=== PATIENT | male | born 1950 ===

== ENCOUNTER 2017-10-30 10:11 | Emergency (ER) | payer OTHER ==
[2017-10-30 10:32] VITALS: BMI 32.3
[2017-10-30 10:34] VITALS: PULSE 69; RESP 16; TEMP 98; O2SAT 100
--- NOTE | 2017-10-30 11:14 | ED PDOC ---
Arrival/HPI - General Chief Complaint: Pain, Chronic Time Seen by Provider: 10/30/17 10:24 - History of Present Illness Associated Symptoms (Text): 67 yo male, no PMH, presents to ED for evaluation of generalized joint pain, predominately to shoulder, elbows and knees x 3 months now. Pt also reports intermittent episodes of swelling. Reports taking Tylenol and Motrin for symptoms and states he does a lot of heavy lifting. No redness noted. Past Medical History - Provider Review Nursing Documentation Reviewed: Yes - Travel History Have you recently traveled outside [place] w/in the past 3 mons?: No - Past History Past History: Non-Contributing - Infectious Disease Hx of Infectious Diseases: None - Psychiatric Hx Substance Use: No Family/Social History - Physician Review Nursing Documentation Reviewed: Yes Family/Social History: No Known Family HX Smoking Status: Never Smoked Hx Alcohol Use: No Hx Substance Use: No Allergies/Home Meds Allergies/Adverse Reactions: Allergies No Known Allergies Allergy (Verified 10/30/17 10:52) Review of Systems - Patients Enrolled in [employer] [X]: A conversation was conducted with the primary medical doctor. - Physician Review All systems were reviewed & negative as marked: Yes - Review of Systems Musculoskeletal: Arthralgias Physical Exam Vital Signs Temp Pulse Resp BP Pulse Ox 10/30/17 13:57 151/87 H 10/30/17 10:33 98.0 F 69 16 165/98 H 100 Temperature: Afebrile Blood Pressure: Normal Pulse: Regular Respiratory Rate: Normal Appearance: Positive for: Well-Appearing, Non-Toxic, Comfortable Pain Distress: None Mental Status: Positive for: Alert and Oriented X 3 - Systems Exam Head: Present: Atraumatic, Normocephalic Pupils: Present: PERRL Extroacular Muscles: Present: EOMI Conjunctiva: Present: Normal Mouth: Present: Moist Mucous Membranes Neck: Present: Normal Range of Motion Respiratory/Chest: Present: Clear to Auscultation, Good Air Exchange. No: Respiratory Distress, Accessory Muscle Use Cardiovascular: Present: Regular Rate and Rhythm, Normal S1, S2. No: Murmurs Abdomen: Present: Normal Bowel Sounds. No: Tenderness, Distention, Peritoneal Signs Back: Present: Normal Inspection Upper Extremity: Present: Normal Inspection. No: Cyanosis, Edema Lower Extremity: Present: Normal Inspection. No: Edema Neurological: Present: GCS=15, CN II-XII Intact, Speech Normal Skin: Present: Warm, Dry, Normal Color. No: Rashes Psychiatric: Present: Alert, Oriented x 3, Normal Insight, Normal Concentration Medical Decision Making ED Course and Treatment: 10/30/17 15:05 XRs obtained of affected joints. All NAD, (+) DJD, as read by VERENICE Labs resulted and reviewed with Pt who demonstrated full understanding - Lab Interpretations Lab Results: 10/30/17 11:56 10/30/17 11:56 Lab Results 10/30/17 11:56: Sodium 142, Potassium 3.9, Chloride 106, Carbon Dioxide 26, Anion Gap 14, BUN 15, Creatinine 0.9, Est GFR ( Amer) > 60, Est GFR (Non- Af Amer) > 60, Random Glucose 103, Calcium 10.1, Total Bilirubin 0.6, AST 32, ALT 49, Alkaline Phosphatase 61, Total Protein 7.7, Albumin 4.4, Globulin 3.2, Albumin/Globulin Ratio 1.4 10/30/17 11:56: WBC 10.3, RBC 4.79, Hgb 14.9, Hct 45.6, MCV 95.3 H, MCH 31.2 H, MCHC 32.7 L, RDW 13.2, Plt Count 200, MPV 8.5, Neut % (Auto) 55.4, Lymph % (Auto ) 29.6, [place] % (Auto) 9.6, Eos % (Auto) 4.8 H, Baso % (Auto) 0.6, Neut # 5.7, Lymph # 3.1, [place] # 1.0 H, Eos # 0.5, Baso # 0.1, ESR 11 - RAD Interpretation Radiology Orders: 10/30/17 11:12 ELBOW TWO VIEWS BI [RAD] Stat KNEES BILATERAL [RAD] Stat SHOULDER LEFT [RAD] Stat SHOULDER RIGHT [RAD] Stat Disposition/Present on Arrival - Present on Arrival Any Indicators Present on Arrival: No - Disposition Have Diagnosis and Disposition been Completed?: Yes Diagnosis: Degenerative arthritis Disposition Time: 15:17 Condition: STABLE Discharge Instructions (ExitCare): Osteoarthritis (ED) Prescriptions: Naproxen 500 mg PO Q12 #20 tab Forms: [employer] (Emir[place])
[2017-10-30 12:18] LABS: BASO # 0.1 K/uL (0.0-0.2); BASO % 0.6 % (0.0-2.0); EOS # 0.5 K/uL (0.0-0.7); EOS % 4.8 % (0.0-4.0); HEMOGLOBIN 14.9 g/dL (12.0-18.0); LYMPH # 3.1 K/uL (1.0-4.3); LYMPH % 29.6 % (20.0-40.0); MEAN CELL VOLUME 95.3 fl (80.0-94.0); MEAN CORPUSCULAR HEMOGLOBIN 31.2 pg (27.0-31.0); MEAN CORPUSCULAR HGB CONC 32.7 g/dL (33.0-37.0); MEAN PLATELET VOLUME 8.5 fl (7.2-11.7); MONO % 9.6 % (0.0-10.0); NEUT # 5.7 K/uL (1.8-7.0); NEUT % 55.4 % (50.0-75.0); NRBC % 0.1 % (0.0-0.0); RBC 4.79 Mil/uL (4.40-5.90); RED CELL DISTRIBUTION WIDTH 13.2 % (11.5-14.5); WHITE BLOOD COUNT 10.3 K/uL (4.8-10.8)
[2017-10-30 12:30] LABS: ALB/GLOB RATIO 1.4 (1.0-2.1); ALBUMIN 4.4 g/dL (3.5-5.0); ALT/SGPT 49 U/L (21-72); AST/SGOT 32 U/L (17-59); BLOOD UREA NITROGEN 15 mg/dl (9-20); CALCIUM 10.1 mg/dL (8.4-10.2); GFR AFRICAN-AMERICAN > 60; GFR NON-AFRICAN AMERICAN > 60
--- NOTE | 2017-10-30 12:52 | RAD ---
PROCEDURE: Radiographs of the Left Shoulder HISTORY: pain COMPARISON: No prior. FINDINGS: BONES: There are mild degenerative changes seen in the left shoulder region. No humeral head flattening is seen. No lytic process is noted. There is mild AC joint spurring noted. Bony glenoid is intact. No definite calcific bursitis is noted. There is a high-riding humeral head noted with narrowed acromial humeral space suggesting rotator cuff pathology. Remainder of the scapula is intact. No dislocation is seen. JOINTS: See above SOFT TISSUES: See above OTHER FINDINGS: Visualized lungs are unremarkable as well as the left ribs. No periosteal reaction is seen. IMPRESSION: Degenerative changes of the left shoulder. No fracture.
--- NOTE | 2017-10-30 12:53 | RAD ---
PROCEDURE: Radiographs of the Right Shoulder HISTORY: pain COMPARISON: No prior. FINDINGS: BONES: Three views of the right shoulder were performed. Mild degenerative changes are seen. Mild AC joint spurring is noted. No calcific bursitis is seen. The humeral head flattening is noted. Bony glenoid remainder of the scapula are intact. No periosteal reaction is seen. Visualized right lung is unremarkable. JOINTS: See above SOFT TISSUES: See above OTHER FINDINGS: None. IMPRESSION: Mild degenerative changes of the right shoulder.
--- NOTE | 2017-10-30 12:54 | RAD ---
PROCEDURE: Right and left knee x-ray, bilateral knees HISTORY: pain COMPARISON: No priors TECHNIQUE: Three views of the right and left knee were performed. FINDINGS: Very mild degenerative changes are appreciated. No loose body is seen. No joint effusion is noted. No tibial plateau depression is seen. Bony structures are normal in outline without lytic process. Patella appear normal location. No joint effusion is seen. IMPRESSION: Mild degenerative changes. No joint effusion.
--- NOTE | 2017-10-30 12:58 | RAD ---
PROCEDURE: Right and left elbow x-ray HISTORY: pain COMPARISON: No prior Technique Three views of the right and left elbow were performed. FINDINGS: No joint effusions are seen. No lytic process is are noted. Mild spurring of the olecranon is seen on the right and to a lesser degree on the left. Radial heads are intact. No erosions are seen. No fracture is identified. No erosions are noted. Distal humerus are intact. Minimal degenerative changes are seen in the lateral epicondylar regions bilaterally. IMPRESSION: Very mild degenerative changes.
[2017-10-30 13:58] VITALS: BP 151/87
== END 2017-10-30 13:57 | disposition home or self-care (01) ==
LOC: H.ER 10:11
DX: M15.9 Polyosteoarthritis, unspecified (principal)

== ENCOUNTER 2017-12-14 15:01 | Observation (INO) | payer OTHER ==
[2017-12-14 15:01] VITALS: BMI 32.3
--- NOTE | 2017-12-14 16:25 | ED PDOC ---
HPI: CCC, URI, Sore Throat Time Seen by Provider: 12/14/17 15:33 Chief Complaint (Nursing): Cough, Cold, Congestion Chief Complaint (Provider): Cough, Cold, Congestion History Per: Patient History/Exam Limitations: no limitations Onset/Duration Of Symptoms: Days (x4) Current Symptoms Are (Timing): Still Present Associated Symptoms: Fever (subjective), Sore Throat, Cough Additional Complaint(s): 67 year old male presents to the ER with complaints of persistent cough and throat pain. Patients reports having a subjective fever as well. Patients states he has been talking Theraflu and Tylenol at home with mild relief. He denies chest pain and shortness of breath. He offers no other medical complaints. PMD: none provided Past Medical History Reviewed: Historical Data, Nursing Documentation, Vital Signs Vital Signs: Last Vital Signs Temp 99.3 F 12/14/17 18:26 Pulse 77 12/14/17 18:26 Resp 20 12/14/17 18:26 BP 123/81 12/14/17 18:26 Pulse Ox 94 L 12/14/17 20:26 - Medical History PMH: No Chronic Diseases - Surgical History Surgical History: No Surg Hx - Family History Family History: States: No Known Family Hx - Home Medications Home Medications: Ambulatory Orders Medication Instructions Recorded Naproxen 500 mg PO Q12 #20 tab 10/30/17 Azithromycin [Zithromax] 250 mg PO DAILY #6 tab 12/14/17 - Allergies Allergies/Adverse Reactions: Allergies Allergy/AdvReac Type Severity Reaction Status Date / Time No Known Allergies Allergy Verified 12/14/17 15:15 Review of Systems ROS Statement: Except As Marked, All Systems Reviewed And Found Negative Constitutional: Positive for: Fever ENT: Positive for: Throat Pain Cardiovascular: Negative for: Chest Pain Respiratory: Positive for: Cough. Negative for: Shortness of Breath Physical Exam - Reviewed Nursing Documentation Reviewed: Yes Vital Signs Reviewed: Yes - Physical Exam Appears: Positive for: Non-toxic, No Acute Distress Head Exam: Positive for: NORMAL INSPECTION Skin: Positive for: Normal Color, Warm, Dry Eye Exam: Positive for: Normal appearance ENT: Positive for: Normal ENT Inspection. Negative for: Pharyngeal Erythema, Tonsillar Exudate, Tonsillar Swelling Neck: Positive for: Normal, Supple Cardiovascular/Chest: Positive for: Regular Rate, Rhythm. Negative for: Murmur Respiratory: Positive for: Normal Breath Sounds. Negative for: Wheezing, Respiratory Distress Neurologic/Psych: Positive for: Alert, Oriented - Laboratory Results Result Diagrams: 12/14/17 21:12 12/14/17 21:12 - ECG O2 Sat by Pulse Oximetry: 94 (RA) - Critical Care Total Time (In Min): 30 Documented Critical Care: Time excludes all time spent performint seperately billable procedures Medical Decision Making Medical Decision Making: Time: 16:09 Plan: --Chest X-Ray CXR: FINDINGS: LUNGS: No active pulmonary disease. PLEURA: No significant pleural effusion identified. No pneumothorax apparent. CARDIOVASCULAR: Normal. OSSEOUS STRUCTURES: Degenerative changes. VISUALIZED UPPER ABDOMEN: Normal. OTHER FINDINGS: None. IMPRESSION: No active disease. 18:21 Patient with Pulse Ox of 92, so 1 Duoneb treatment ordered. 19:05 Repeat vitals indicate Pulse Ox at 95, second Duoneb treatment given. 20:00 Repeat vitals indicate Pulse Ox at 91, given third Duoneb treatment, and Solumedrol 125 mg IVP. Labs and rapid flu ordered. 21:00 Case discussed with hospitalist immigration coordinator and patient admitted under Dr. Soto for shortness of breath and hypoxia. 21:12 Serology reports reviewed, patient positive for Flu A. 21:43 Labs reviewed and significant for elevated D-Dimer. CT Angio Chest ordered. Scribe Attestation: Documented by Tammie Powell, acting as a scribe for Macarena Enamorado PA-C Provider Scribe Attestation: All medical record entries made by the Scribe were at my direction and personally dictated by me. I have reviewed the chart and agree that the record accurately reflects my personal performance of the history, physical exam, medical decision making, and the department course for this patient. I have also personally directed, reviewed, and agree with the discharge instructions and disposition. Disposition - Clinical Impression Clinical Impression: Cough - Disposition Condition: STABLE Prescriptions: Azithromycin [Zithromax] 250 mg PO DAILY #6 tab Instructions: Cough in Adults Forms: [facility] [employer] (Pashto) Print Language: POLISH
--- NOTE | 2017-12-14 16:34 | RAD ---
HISTORY: cough, feverish at home COMPARISON: No prior. TECHNIQUE: Chest PA and lateral FINDINGS: LUNGS: No active pulmonary disease. PLEURA: No significant pleural effusion identified. No pneumothorax apparent. CARDIOVASCULAR: Normal. OSSEOUS STRUCTURES: Degenerative changes. VISUALIZED UPPER ABDOMEN: Normal. OTHER FINDINGS: None. IMPRESSION: No active disease.
[2017-12-14] MEDS ORDERED: Albuterol-Ipratrop 3 mg / 0.5 (3 ml) UD INH STA ×3 (18:21→19:59)
[2017-12-14] MEDS ORDERED: Albuterol-Ipratrop 3 mg / 0.5 (3 ml) UD ONE (20:36)
--- NOTE | 2017-12-14 21:19 | CP.PCM.HP ---
History of Present Illness - History of Present Illness History of Present Illness: CC: cough, throat pain, ?fever HPI: 67 y/o male with no diagnosed medical conditions who presents with cough and throat pain. Patient states symptoms started 2-3 days ago. Cough is non- productive. There may have been fevers (unmeasured), no n/v/d. No CP. He has been trying to take OTC medications (Tylenol, Theraflu) with minimal relief. ROS: 14 systems reviewed, negative other than HPI MHx/SHx: None Allergies: None Medications: None Family Hx: No relevnat history Social Hx: Lives with family, no tobacco, no significant EtOH Present on Admission - Present on Admission Any Indicators Present on Admission: No Past Patient History - Infectious Disease Hx of Infectious Diseases: None - Past Social History Smoking Status: Never Smoked - PSYCHIATRIC Hx Substance Use: No - SURGICAL HISTORY Hx Surgeries: No Meds Allergies/Adverse Reactions: Allergies Allergy/AdvReac Type Severity Reaction Status Date / Time No Known Allergies Allergy Verified 12/14/17 15:15 Physical Exam - Constitutional Appears: No Acute Distress - Head Exam Head Exam: ATRAUMATIC, NORMOCEPHALIC - Eye Exam Eye Exam: EOMI, PERRL - ENT Exam ENT Exam: Mucous Membranes Moist - Neck Exam Neck exam: Positive for: Full Rom - Respiratory Exam Respiratory Exam: Clear to Auscultation Bilateral, NORMAL BREATHING PATTERN - Cardiovascular Exam Cardiovascular Exam: REGULAR RHYTHM, +S1, +S2 - GI/Abdominal Exam GI & Abdominal Exam: Normal Bowel Sounds, Soft - Extremities Exam Extremities exam: Positive for: full ROM, normal inspection - Neurological Exam Neurological exam: Alert, CN II-XII Intact, Oriented x3 - Psychiatric Exam Psychiatric exam: Normal Affect, Normal Mood - Skin Skin Exam: Dry, Warm Results - Vital Signs Recent Vital Signs: Last Vital Signs Temp 99.3 F 12/14/17 18:26 Pulse 77 12/14/17 18:26 Resp 20 12/14/17 18:26 BP 123/81 12/14/17 18:26 Pulse Ox 94 L 12/14/17 20:26 - Labs Result Diagrams: 12/14/17 21:12 12/14/17 22:25 Assessment & Plan (1) URTI (infection of the upper respiratory tract) Assessment and Plan: 67 y/o male with URTI symptoms as well as persistent hypoxia. -tele obs -D dimer positive, pending CT angio -Cont Tamiflu for flu+ -Cont duonebs PRN -SQ lovenox for DVT PPx Status: Acute (2) Hypoxia Status: Acute (3) DVT prophylaxis Status: Acute
[2017-12-14 21:27] LABS: BASO % 0.6 % (0.0-2.0); EOS # 0.3 K/uL (0.0-0.7); EOS % 4.5 % (0.0-4.0); HEMOGLOBIN 14.6 g/dL (12.0-18.0); LYMPH # 3.2 K/uL (1.0-4.3); LYMPH % 51.7 % (20.0-40.0); MEAN CELL VOLUME 94.2 fl (80.0-94.0); MEAN CORPUSCULAR HGB CONC 33.9 g/dL (33.0-37.0); MEAN PLATELET VOLUME 8.4 fl (7.2-11.7); MONO % 15.3 % (0.0-10.0); NEUT # 1.8 K/uL (1.8-7.0); NEUT % 27.9 % (50.0-75.0); NRBC % 0.1 % (0.0-0.0); RBC 4.58 Mil/uL (4.40-5.90); RED CELL DISTRIBUTION WIDTH 12.9 % (11.5-14.5); WHITE BLOOD COUNT 6.3 K/uL (4.8-10.8)
[2017-12-14 21:39] LABS: PARTIAL THROMBOPLASTIN TIME 30.9 Seconds (25.6-37.1)
[2017-12-14] MEDS ORDERED: Iodixanol 320 MG/ML 100 ML BOTTLE IV ONE (22:35)
[2017-12-14 22:50] LABS: ALB/GLOB RATIO 1.2 (1.0-2.1); ALBUMIN 4.2 g/dL (3.5-5.0); ALT/SGPT 40 U/L (21-72); AST/SGOT 36 U/L (17-59); BLOOD UREA NITROGEN 16 mg/dl (9-20); CALCIUM 9.4 mg/dL (8.4-10.2); GFR AFRICAN-AMERICAN > 60; GFR NON-AFRICAN AMERICAN > 60
[2017-12-14] MEDS ORDERED: Sodium Chloride 0.9% 1,000 ML IV SCH (23:00)
[2017-12-14] MEDS ORDERED: KCL 40MEQ/NS 1L 1,000 ML IV SCH (23:03)
--- NOTE | 2017-12-15 00:11 | CT ---
EXAM: CT Angiography Chest With Intravenous Contrast EXAM DATE/TIME: 12/14/2017 9:43 PM CLINICAL HISTORY: 67 years old, male; Signs and symptoms; Shortness of breath; Additional info: SOB, elevated ddimer TECHNIQUE: Axial computed tomographic angiography images of the chest with intravenous contrast using pulmonary embolism protocol. All CT scans at this facility use one or more dose reduction techniques, viz.: automated exposure control; ma/kV adjustment per patient size (including targeted exams where dose is matched to indication; i.e. head); or iterative reconstruction technique. MIP reconstructed images were created and reviewed. Coronal and sagittal reformatted images were created and reviewed. CONTRAST: 95 mL of [id number] administered intravenously. COMPARISON: CR - CHEST TWO VIEWS (PA/LAT) 2017-12-14 16:16 FINDINGS: Artifacts: Motion artifact degrades image quality. Heart, aorta and Pulmonary arteries: The heart is mildly enlarged. Ascending aorta is mildly dilated, 4.1 cm in diameter. There is tapering at the arch.There are vascular calcifications.There are no pulmonary emboli. Lungs and pleural spaces: Trachea and main bronchi are patent. There is minimal dependent atelectasis. There is no focal consolidation. There are no effusions. Mediastinum: The esophagus is unremarkable. There are multiple mildly prominent mediastinal nodes. There are multiple small right hilar nodes. There is minimal left hilar adenopathy. Thyroid: Thyroid is not optimally demonstrated. Bones/joints: There are degenerative changes in the osseus structures Soft tissues: unremarkable Upper abdomen: There are no acute abnormalities in the visualized portion of the abdomen. IMPRESSION: Mild cardiomegaly and atherosclerotic disease, no aneurysm, dissection or pulmonary embolus; multiple mildly enlarged mediastinal and right hilar nodes, etiology unknown
[2017-12-15 00:20] VITALS: RESP 18
[2017-12-15] MEDS ORDERED: Albuterol-Ipratrop 3 mg / 0.5 (3 ml) UD INH PRN (03:04)
[2017-12-15 05:31] LABS: HEMOGLOBIN 14.8 g/dL (12.0-18.0); MEAN CORPUSCULAR HEMOGLOBIN 32.1 pg (27.0-31.0); MEAN CORPUSCULAR HGB CONC 34.1 g/dL (33.0-37.0); RBC 4.61 Mil/uL (4.40-5.90); RED CELL DISTRIBUTION WIDTH 13.1 % (11.5-14.5); WHITE BLOOD COUNT 3.2 K/uL (4.8-10.8)
[2017-12-15 06:19] LABS: BLOOD UREA NITROGEN 16 mg/dl (9-20); CALCIUM 9.3 mg/dL (8.4-10.2); GFR AFRICAN-AMERICAN > 60; GFR NON-AFRICAN AMERICAN > 60
[2017-12-15 08:01] VITALS: O2SAT 94
[2017-12-15] MEDS ORDERED: Influenza Vaccine 18yr & older 0.5 ML/45 MCG SYR IM ONE (09:00)
[2017-12-15] MEDS ORDERED: Enoxaparin 40 mg Syringe SC SCH (09:00)
[2017-12-15] MEDS ORDERED: Pneumococcal 23-Valent Vaccine IM ONE (09:00)
--- NOTE | 2017-12-15 15:23 | CP.PCM.DIS ---
Provider - Provider Date of Admission: 12/14/17 21:00 Attending physician: Alicia Soto MD Time Spent in preparation of Discharge (in minutes): 40 Diagnosis - Discharge Diagnosis (1) Influenza A Status: Acute Hospital Course - Lab Results Lab Results: Most Recent Lab Values WBC 3.2 K/uL (4.8-10.8) L 12/15/17 04:20 RBC 4.61 Mil/uL (4.40-5.90) 12/15/17 04:20 Hgb 14.8 g/dL (12.0-18.0) 12/15/17 04:20 Hct 43.3 % (35.0-51.0) 12/15/17 04:20 MCV 94.0 fl (80.0-94.0) 12/15/17 04:20 MCH 32.1 pg (27.0-31.0) H 12/15/17 04:20 MCHC 34.1 g/dL (33.0-37.0) 12/15/17 04:20 RDW 13.1 % (11.5-14.5) 12/15/17 04:20 Plt Count 214 K/uL (130-400) 12/15/17 04:20 MPV 8.4 fl (7.2-11.7) 12/14/17 21:12 Neut % (Auto) 27.9 % (50.0-75.0) L 12/14/17 21:12 Lymph % (Auto) 51.7 % (20.0-40.0) H 12/14/17 21:12 [place] % (Auto) 15.3 % (0.0-10.0) H 12/14/17 21:12 Eos % (Auto) 4.5 % (0.0-4.0) H 12/14/17 21:12 Baso % (Auto) 0.6 % (0.0-2.0) 12/14/17 21:12 Neut # (Auto) 1.8 K/uL (1.8-7.0) 12/14/17 21:12 Lymph # (Auto) 3.2 K/uL (1.0-4.3) 12/14/17 21:12 [place] # (Auto) 1.0 K/uL (0.0-0.8) H 12/14/17 21:12 Eos # (Auto) 0.3 K/uL (0.0-0.7) 12/14/17 21:12 Baso # (Auto) 0.0 K/uL (0.0-0.2) 12/14/17 21:12 PT 11.0 Seconds (9.8-13.1) 12/14/17 21:12 INR 1.0 (0.9-1.2) 12/14/17 21:12 APTT 30.9 Seconds (25.6-37.1) 12/14/17 21:12 D-Dimer, Quantitative 330 ng/mlDDU (0-230) H 12/14/17 21:12 Sodium 144 mmol/l (132-148) 12/15/17 04:20 Potassium 4.0 MMOL/L (3.6-5.0) 12/15/17 04:20 Chloride 107 mmol/L (98-107) 12/15/17 04:20 Carbon Dioxide 23 mmol/L (22-30) 12/15/17 04:20 Anion Gap 18 (10-20) 12/15/17 04:20 BUN 16 mg/dl (9-20) 12/15/17 04:20 Creatinine 0.8 mg/dl (0.8-1.5) 12/15/17 04:20 Est GFR ( Amer) > 60 12/15/17 04:20 Est GFR (Non-Af Amer) > 60 12/15/17 04:20 Random Glucose 190 mg/dL (75-110) H 12/15/17 04:20 Calcium 9.3 mg/dL (8.4-10.2) 12/15/17 04:20 Total Bilirubin 0.5 mg/dl (0.2-1.3) 12/14/17 22:25 AST 36 U/L (17-59) 12/14/17 22:25 ALT 40 U/L (21-72) 12/14/17 22:25 Alkaline Phosphatase 61 U/L (38-126) 12/14/17 22:25 Total Protein 7.6 G/DL (6.3-8.2) 12/14/17 22:25 Albumin 4.2 g/dL (3.5-5.0) 12/14/17 22:25 Globulin 3.4 gm/dL (2.2-3.9) 12/14/17 22:25 Albumin/Globulin Ratio 1.2 (1.0-2.1) 12/14/17 22:25 Influenza Typ A,B (EIA) Pos for influenza a (NEGATIVE) H 12/14/17 21:12 - Hospital Course Hospital Course: 67 y/o gent with no significant PMH, remote history of smoking, came in because of 5 days history of URI, cough and fever. In the ED , he was found to be Influenza A + , Saturation was 92% on RA . His Ddimer was elevated and so a CTA Pulm was done w/c was negative for PE, no infiltrates however noted small mediastinal LN. He was given a dose of IV Solumedrol in the ED. Started on Duoneb treatment and Tamiflu. and IVF. His condition improved. His cough improved , SOB resolved. He is saturating 96% on RA after 6 minutes walking. He denies any CP nor SOB and is afebrile. Discharge Exam - Head Exam Head Exam: ATRAUMATIC, NORMAL INSPECTION, NORMOCEPHALIC - Eye Exam Eye Exam: EOMI, Normal appearance, PERRL Pupil Exam: NORMAL ACCOMODATION - ENT Exam ENT Exam: Mucous Membranes Moist - Neck Exam Neck exam: Full Rom - Respiratory Exam Respiratory Exam: NORMAL BREATHING PATTERN. absent: Rales, Wheezes, Respiratory Distress - Cardiovascular Exam Cardiovascular Exam: REGULAR RHYTHM, +S1, +S2 - GI/Abdominal Exam GI & Abdominal Exam: Normal Bowel Sounds. absent: Tenderness - Extremities Exam Extremities exam: full ROM, normal capillary refill, pedal pulses present - Back Exam Back exam: FULL ROM. absent: CVA tenderness (L), CVA tenderness (R) - Neurological Exam Neurological exam: Alert, CN II-XII Intact, Normal Gait, Oriented x3, Reflexes Normal - Psychiatric Exam Psychiatric exam: Normal Affect, Normal Mood - Skin Skin Exam: Dry, Intact, Normal Color, Warm Discharge Plan - Discharge Medications Prescriptions: Oseltamivir [Tamiflu Cap] 75 mg PO BID #10 cap - Follow Up Plan Condition: GOOD Disposition: HOME/ ROUTINE Instructions: Cough in Adults Additional Instructions: ff up [facility] in 1-2 wks need ff up CT scan to ff up on Mediastinal Lymphadenopathy seen on CT Referrals: [facility] [Outside]
[2017-12-15 16:00] VITALS: BP 119/78; PULSE 70; TEMP 98
--- NOTE | 2017-12-15 22:10 | CARD ---
APPROVED REPORT EKG Measurement Heart [id number] <Conclusion> Normal sinus rhythm Left axis deviation Abnormal ECG
== END 2017-12-15 19:00 | disposition home or self-care (01) ==
LOC: H.ER 15:01 → H.ERHOLD 21:00 → H.TEL 23:42
PROVIDERS: ADMIT Internal Medicine; ATTEND Internal Medicine
DX: J10.1 Influenza due to other identified influenza virus with other respiratory manifestations (principal); R09.02 Hypoxemia; Z87.891 Personal history of nicotine dependence; Z23 Encounter for immunization
CPT/HCPCS: 36415; 71046; 71275; 80048; 80053; 85025; 85027; 85378; 85610; 85730; 87040; 87804; 90471; 90732; 93005; 94640; 99282; G0378; J1650; J2930; Q2035; Q9967